=== PATIENT | male | born 1955 | race Caucasian/White ===

== ENCOUNTER 2024-08-03 07:34 | Day surgery (SDC) | payer MEDICARE ==
[~2024-08-03 07:34] MED LIST: FENTANYL PF 100MCG/2ML AMPUL ONE; MIDAZOLAM HCL 2 MG/2ML VIAL ONE
[2024-08-03] MEDS ORDERED: BUPIVACAINE 0.5 % PF 150 MG/30 ML VIAL ONE (07:50)
[2024-08-03] MEDS ORDERED: LIDOCAINE 1%-EPI 1:100,000 20 ML VIAL ONE (07:51)
== END 2024-08-03 13:20 | disposition home or self-care (01) ==
LOC: DS 07:34
PROVIDERS: ATTEND Surgery
DX: K40.30 Unilateral inguinal hernia, with obstruction, without gangrene, not specified as recurrent (principal); I10 Essential (primary) hypertension; E03.9 Hypothyroidism, unspecified; E78.5 Hyperlipidemia, unspecified; M19.90 Unspecified osteoarthritis, unspecified site; F32.9 Major depressive disorder, single episode, unspecified; F17.210 Nicotine dependence, cigarettes, uncomplicated; Z79.890 Hormone replacement therapy; Z79.899 Other long term (current) drug therapy; Z98.890 Other specified postprocedural states
CPT/HCPCS: 49507; 64425; 88304; J1885; J0690; J3490 ×3; J1100; J2704; J3010; J2405; J7030; J7050; J2250; C1781